=== PATIENT | male | born 1995 | race Caucasian/White ===

== ENCOUNTER 2023-11-26 15:20 | Emergency (ER) | payer SELFPAY ==
[~2023-11-26] VITALS: Ht 170.2 cm; Wt 72.0 kg
[2023-11-26 15:28] VITALS: TEMP 98; O2SAT 99
[2023-11-26] MEDS: TETRACAINE 0.5% OPHTH DROPS 4ML BOTHEYE ONE (17:00)
[2023-11-26] MEDS: FLUORESCEIN SODIUM 1MG/STRIP BOTHEYE ONE (17:30)
[2023-11-26] MEDS ORDERED: GLYC30DR4 EACHEYE (17:46)
[2023-11-26] MEDS ORDERED: OCUFLX EACHEYE (17:46)
[2023-11-26 18:00] VITALS: BP 119/83; PULSE 85; RESP 17; O2SAT 100
== END 2023-11-26 19:15 | disposition home or self-care (01) ==
LOC: EDBD 15:20 → ER 15:20
DX: H10.89 Other conjunctivitis (principal)
CPT/HCPCS: 99283